=== PATIENT | female | born 1985 | race Two or more races ===

== ENCOUNTER 2021-07-05 18:20 | Emergency (ER) | payer BC, OTHER ==
[~2021-07-05] VITALS: Ht 160 cm; Wt 81.6 kg
[2021-07-05 18:23] VITALS: BP 134/89
== END 2021-07-05 23:21 | disposition home or self-care (01) ==
LOC: ER 18:22
DX: J20.9 Acute bronchitis, unspecified (principal); Z20.822 Contact with and (suspected) exposure to COVID-19; Z90.49 Acquired absence of other specified parts of digestive tract; Z88.1 Allergy status to other antibiotic agents
CPT/HCPCS: 36415; 71046; 87426

== ENCOUNTER 2021-07-29 19:35 | Emergency (ER) | payer BC ==
[~2021-07-29] VITALS: Ht 160 cm; Wt 78.0 kg
[2021-07-29] MEDS ORDERED: ALBUTEROL SULF 2.5 MG/0.5ML(0.5%) NEB SOLN NEB ONE (19:45)
[2021-07-29] MEDS ORDERED: IPRATROPIUM BROM 0.5 MG/2.5ML INH SOL NEB ONE (19:45)
[2021-07-29 20:41] LABS: Basophils # (auto) 0 10 ^3/uL (0-0.2); Basophils % (auto) 0.3 % (0.0-2.0); Eosinophils # (auto) 0.1 10 ^3/uL (0-0.8); Eosinophils % (auto) 0.6 % (0.0-7.0); Hematocrit 39.3 % (36.0-46.0); Hemoglobin 13.2 g/dL (12.2-16.2); Lymphocytes # (auto) 3.2 10 ^3/uL (0.4-5.4); Lymphocytes % (auto) 34.7 % (10.0-50.0); Mean Corpuscular Hemoglobin 28.6 pg (28.0-32.0); Mean Corpuscular Hgb Conc. 33.6 g/dL (32.0-36.0); Mean Corpuscular Volume 85.2 fL (80.0-100.0); Monocytes # (auto) 0.4 10 ^3/uL (0-1.3); Monocytes % (auto) 4.3 % (0.0-12.0); Neutrophils # (auto) 5.5 10 ^3/uL (1.6-8.6); Neutrophils % (auto) 60.1 % (37.0-80.0); Red Blood Cells 4.61 10^6/uL (4.0-5.20); Red Cell Distribution Width 14.5 % (11.8-14.3); White Blood Cell 9.1 10^3/uL (4.4-10.8)
[2021-07-29 20:46] LABS: Calcium 8.7 mg/dL (8.5-10.1); Potassium 3.1 mmol/L (3.5-5.1)
[2021-07-29 20:54] LABS: Albumin 3.7 g/dL (3.4-5.0); Bilirubin, Total 0.2 mg/dL (0.2-1.0); Total Protein 7.2 g/dL (6.4-8.2)
[2021-07-30 02:51] VITALS: BP 120/89
[2021-07-30] MEDS ORDERED: guaiFENesin-CODEINE Liq 5 ML UD PO ONE (03:15)
[2021-07-30] MEDS ORDERED: PANTOPRAZOLE 40 MG TAB PO ONE (03:15)
== END 2021-07-30 04:04 | disposition home or self-care (01) ==
LOC: ER 19:37
DX: J06.9 Acute upper respiratory infection, unspecified (principal); Z20.822 Contact with and (suspected) exposure to COVID-19; Z90.49 Acquired absence of other specified parts of digestive tract; Z98.890 Other specified postprocedural states
CPT/HCPCS: 36415; 71046; 80053; 84484; 85025; 87426; 94640; 99284; J7644